=== PATIENT | male | born 1980 | race African-American/Black ===

== ENCOUNTER 2018-06-27 20:04 | Emergency (ER) | payer SELFPAY ==
[~2018-06-27] VITALS: Ht 198.1 cm; Wt 152.2 kg
[2018-06-27 20:39] VITALS: BP 156/95; PULSE 85; RESP 18; Ht 198.1 cm; Wt 152.2 kg
--- NOTE | 2018-06-28 00:03 | ERD ---
ER Documentation Chief Complaint Chief Complaint L ring finger tenderness x 2 weeks HPI This is a 38-year-old male with a nonsignificant past medical history presents ED with complaints of growth on left anterior ring finger that is been present for the past 2 weeks. Patient states that the growth has a cauliflower-like appearance. Patient states that he believes that it was a wart and he tried using [id number] wart medicine but has not gone away. Denies fever, chills, painful range of motion, tingling, numbness, lack sensation, decreased range of motion, purulent drainage, warmth, tenderness palpation all other symptoms ROS All systems reviewed and are negative except as per history of present illness. Allergies Allergies: Coded Allergies: No Known Allergy (Unverified , 06/27/18) PMhx/Soc Medical and Surgical Hx: pt denies Medical Hx, pt denies Surgical Hx History of Surgery: No Anesthesia Reaction: No Hx Neurological Disorder: No Hx Respiratory Disorders: No Hx Cardiac Disorders: No Hx Psychiatric Problems: No Hx Miscellaneous Medical Probl: No Hx Alcohol Use: Yes (OCCASIONAL USE) Hx Substance Use: No Hx Tobacco Use: No Smoking Status: Never smoker FmHx Family History: No diabetes Physical Exam Vitals Vital Signs Date Temp Pulse Resp B/P (MAP) Pulse Ox O2 O2 Flow FiO2 Time Delivery Rate 06/27/18 97.7 85 18 156/95 98 20:39 (115) Physical Exam Const: No acute distress Head: Atraumatic Eyes: Normal Conjunctiva ENT: Normal External Ears, Nose and Mouth. Neck: Full range of motion. No meningismus. Resp: Clear to auscultation bilaterally Cardio: Regular rate and rhythm, no murmurs Skin: Wart on left ring finger with no lymphatic streaking Neur: Awake and alert Psych: Normal Mood and Affect Procedures/MDM ER COURSE: The patient was stable throughout ED course. I kept the patient and/or family informed of laboratory and diagnostic imaging results throughout the emergency room course. The patient was promptly evaluated and a treatment plan was devised based on H&P and other data. This plan was discussed with the patient who agreed and had no further questions or concerns prior to discharge. MEDICAL DECISION MAKIN-year-old male presents ED with wart on left ring finger that is been present for 2 weeks. Patient was advised to follow-up with dermatology to have wart treated with liquid nitrogen. No evidence of scabies, STS, TEN, Lyme's disease, syphilis, [place] spotted fever, shingles, disseminated gonorrhea chlamydia, DIC, TTP, ITP, sepsis, necrotizing fasciitis, gangrene, or other emergent condition. Patient's vitals are stable and can be managed with outpatient close follow-up. Advised patient to follow-up with her primary care in the next 48 hours. Advised patient return to ED with any worsening symptoms. DISPOSITION PLAN: We discussed follow up with the patient's primary care doctor within 24 to 48 hours. Patient counseled regarding my diagnostic impression and care plan. Prior to discharge all questions answered. Pt agrees with treatment plan and understands strict return precautions. Precautionary instructions provided including instructions to return to the ER if not improving or for any worsening or changing symptoms or concerns. ExitCare instructions provided. Prior to discharge, patients vital signs have been reviewed SPECIALIST FOLLOW UP RECOMMENDED: None Patient has been advised to follow up with primary care in 1-2 days. Disclaimer: Inadvertent spelling and grammatical errors are likely due to EHR/dictation software use and do not reflect on the overall quality of patient care. Also, please note that the electronic time recorded on this note does not necessarily reflect the actual time of the patient encounter. Blood Pressure Assessment: Patient's blood pressure was elevated (>120/80) but appears stable without evidence of hypertension emergency or urgency. The patient was counseled about the risks of hypertension and urged to pursue outpatient monitoring and therapy within a week with their primary care physician. Departure Diagnosis: Primary Impression: Viral wart on finger Condition: Stable Patient Instructions: What Are Warts?, Warts, Non-Genital Referrals: ARDEN JONES MD,LANETTE ESPANA,JOSHUA COTTER,NATALIYA HERNANDEZ,JAIDA NAYLOR,ERIK ESCUDERO,ERIK Shaver Additional Instructions: Patient advised to follow-up with dermatology to receive treatment for wart. Patient advised to return to the ED immediately for new or worsening symptoms. Patient advised to follow up with primary care provider in the next 24-48 hours. Patient verbalized understanding and agrees with treatment plan and course of action. If patient has no primary care they may follow up with one of the community clinics listed on the following page or one of the options listed below [facility] + [address] [place] [address] or [facility] [address] [place] [address] or [facility] [address] [place] [address] JOSE CARLOS PA-C Jun 28, 2018 00:02
== END 2018-06-27 23:46 | disposition home or self-care (01) ==
LOC: FTE 20:04
DX: B07.9 Viral wart, unspecified (principal)
CPT/HCPCS: 99282

== ENCOUNTER 2018-07-31 02:18 | Emergency (ER) | payer SELFPAY ==
[~2018-07-31] VITALS: Ht 190.5 cm; Wt 127.2 kg
[2018-07-31 02:25] VITALS: Ht 190.5 cm; Wt 127.2 kg
[2018-07-31] MEDS ORDERED: SOD CHLORIDE 0.9% 1,000 ML IV STA (02:35)
[2018-07-31] MEDS ORDERED: LORAZEPAM 2 MG INJ IV ONE (03:00)
[2018-07-31] MEDS ORDERED: LORA-441 PO (04:05)
--- NOTE | 2018-07-31 04:05 | ERD ---
ER Documentation Chief Complaint Chief Complaint c/o palpitations, sob and chest pressure x 15 mins. HPI There is a 38 female with complaints of palpitations shortness of breath and chest pressure for 15 minutes. Patient has been under a lot of anxiety. Pain is mild in his chest. It is since resolved upon arrival to the room. He says he has been very anxious secondary to life stressors. Denies suicidal homicidal ideation. Denies auditory or visual hallucinations. Denies any other current complaints. ROS All systems reviewed and are negative except as per history of present illness. Medications Home Meds No Active Prescriptions or Reported Meds Allergies Allergies: Coded Allergies: No Known Allergy (Unverified , 07/31/18) PMhx/Soc Medical and Surgical Hx: pt denies Surgical Hx History of Surgery: No Anesthesia Reaction: No Hx Neurological Disorder: No Hx Respiratory Disorders: No Hx Cardiac Disorders: No Hx Psychiatric Problems: Yes (ANXIETY) Hx Miscellaneous Medical Probl: No Hx Alcohol Use: No Hx Substance Use: No Hx Tobacco Use: No Smoking Status: Never smoker Physical Exam Vitals Vital Signs Date Temp Pulse Resp B/P (MAP) Pulse Ox O2 O2 Flow FiO2 Time Delivery Rate 07/31/18 98.6 109 18 154/96 98 Room Air 02:43 (115) 07/31/18 98.6 135 26 157/98 98 02:25 (117) Physical Exam Const: No acute distress Head: Atraumatic Eyes: Normal Conjunctiva ENT: Normal External Ears, Nose and Mouth. Neck: Full range of motion. No meningismus. Resp: Clear to auscultation bilaterally Cardio: Regular rate and rhythm, no murmurs Abd: Soft, non tender, non distended. Normal bowel sounds Skin: No petechiae or rashes Back: No midline or flank tenderness Ext: No cyanosis, or edema Neur: Awake and alert Psych: Normal Mood and Affect Result Diagram: 07/31/18 02407/31/18 024 Results 24 hrs Laboratory Tests Test 07/31/18 02:45 07/31/18 02:55 White Blood Count 9.4 10^3/ul Red Blood Count 5.91 10^6/ul Hemoglobin 15.3 g/dl Hematocrit 48.8 % Mean Corpuscular Volume 82.6 fl Mean Corpuscular Hemoglobin 25.9 pg Mean Corpuscular Hemoglobin Concent 31.4 g/dl Red Cell Distribution Width 13.3 % Platelet Count 239 10^3/UL Mean Platelet Volume 11.1 fl Immature Granulocytes % 0.400 % Neutrophils % 48.2 % Lymphocytes % 38.9 % Monocytes % 8.7 % Eosinophils % 3.5 % Basophils % 0.3 % Nucleated Red Blood Cells % 0.0 /100WBC Immature Granulocytes # 0.040 10^3/ul Neutrophils # 4.5 10^3/ul Lymphocytes # 3.7 10^3/ul Monocytes # 0.8 10^3/ul Eosinophils # 0.3 10^3/ul Basophils # 0.0 10^3/ul Nucleated Red Blood Cells # 0.0 10^3/ul Sodium Level 141 mmol/L Potassium Level 3.4 mmol/L Chloride Level 105 mmol/L Carbon Dioxide Level 24 mmol/L Anion Gap 12 Blood Urea Nitrogen 22 mg/dl Creatinine 1.35 mg/dl Est Glomerular Filtrat Rate mL/min > 60 mL/min Glucose Level 149 mg/dl Calcium Level 9.3 mg/dl Total Bilirubin 0.3 mg/dl Direct Bilirubin 0.00 mg/dl Indirect Bilirubin 0.3 mg/dl Aspartate Amino Transf (AST/SGOT) 30 IU/L Alanine Aminotransferase (ALT/SGPT) 39 IU/L Alkaline Phosphatase 94 IU/L Troponin I < 0.012 ng/ml B-Type Natriuretic Peptide < 11 PG/ML Total Protein 8.2 g/dl Albumin 4.5 g/dl Globulin 3.70 g/dl Albumin/Globulin Ratio 1.21 Salicylates Level < 1.0 mg/dl Acetaminophen Level < 10.0 ug/ml Urine Opiates Screen Negative Urine Barbiturates Negative Urine Amphetamines Screen Negative Urine Benzodiazepines Screen Negative Urine Cocaine Screen Negative Urine Cannabinoids Positive Current Medications Medications Dose Sig/Ayad Start Time Status Last (Trade) Ordered Route PRN Stop Time Admin Dose Reason Admin Sodium 1,000 ml @ Q1H STAT 07/31/18 DC 07/31/18 Chloride 1,000 mls/hr IV 02:35 02:50 07/31/18 03:34 Lorazepam 1 mg ONCE ONCE 07/31/18 DC 07/31/18 (Ativan) IV 03:00 03:20 07/31/18 03:01 Procedures/MDM EKG: Rate/Rhythm: [Normal Sinus Rhythm] QRS, ST, T-waves: [No changes consistent w/ acute ischemia] Impression: [No evidence of ischemia or arrhythmia] Chest X-ray 1V Interpreted by me: Soft Tissue: No acute abnormalities Bones: No acute abnormalities Mediastinum/Cardiac Silhouette/Lungs: [No acute abnormalities] Medical decision making: Patient's thoracic symptoms have stabilized while in the department and are stable for outpatient follow up. Exam and work up not consistent w/ ischemia, arrhythmia, PE or dissection. The bulge is consistent with generalized anxiety disorder with an acute panic attack. Patient feels much better post intravenous Ativan. Patient be discharged home with short course of benzodiazepines. Is been told to return for new or worsening symptoms. Departure Diagnosis: Primary Impression: Palpitations Condition: Stable FREDA CLARK Jul 31, 2018 04:05
[2018-07-31 04:15] VITALS: BP 113/77; PULSE 97; RESP 17
== END 2018-07-31 04:32 | disposition home or self-care (01) ==
LOC: E/R 02:18
DX: R00.2 Palpitations (principal)
CPT/HCPCS: 36415; 71045; 80053; 80307; 83880; 84484; 85025; 93005; 96374; 99285; J2060; J7030